=== PATIENT | female | born 1990 | race African-American/Black ===

== ENCOUNTER 2018-09-29 14:50 | Inpatient (IN) | payer OTHER ==
[~2018-09-29] VITALS: Ht 170.2 cm; Wt 65.8 kg
[2018-09-29 14:51] VITALS: BP 114/70
[2018-09-29 15:43] LABS: URINE BILIRUBIN NEGATIVE (Negative); URINE BLOOD NEGATIVE (Negative); URINE CLARITY CLEAR; URINE COLOR YELLOW; URINE GLUCOSE-RANDOM* NEGATIVE (Negative); URINE KETONES NEGATIVE (Negative); URINE PROTEIN (DIPSTICK) NEGATIVE (Negative)
[2018-09-29 15:50] LABS: URINE LEUKOCYTES-REFLEX 1+ (Negative); URINE NITRITE-REFLEX POSITIVE (Negative)
[2018-09-29 15:52] LABS: BACTERIA-REFLEX >30 Many /HPF (None Seen); CASTS None Seen /LPF (None Seen); CRYSTALS None Seen /LPF (None Seen); SQUAMOUS >10 Many /LPF (0-3); URINE RBC None Seen /HPF (0-2); URINE WBC-REFLEX 0-5 Rare /HPF (0-5)
[2018-09-29 17:49] LABS: MCH 15.7 pg (26.0-34.0)
[2018-09-29 17:51] LABS: CREATININE 0.7 mg/dL (0.6-1.0); MCHC 28.4 g/dL (28.0-37.0); MCV 55.3 fL (80.0-100.0); PLATELET COUNT 439 thou/uL (150-400); POTASSIUM 3.7 mmol/L (3.5-5.1); RBC 3.53 mil/uL (4.20-5.00); RDW 20.6 % (10.5-14.5); WBC 4.9 thou/uL (4.0-11.0)
[2018-09-29 17:53] LABS: HEMATOCRIT 19.5 % (37.0-47.0)
[2018-09-29 17:54] LABS: HEMOGLOBIN 5.6 gm/dL (12.0-15.0)
[2018-09-29 17:57] LABS: ALBUMIN 3.9 g/dL (3.4-5.0); TOTAL BILIRUBIN 0.3 mg/dL (<0.1-1.0); TOTAL PROTEIN 7.6 g/dL (6.4-8.2)
[2018-09-29 18:17] LABS: ABSOLUTE NEUTROPHILS 3.8 thou/uL (1.4-8.2)
[2018-09-29 18:18] LABS: ANISOCYTOSIS 1+; HYPOCHROMASIA 2+; MICROCYTES 3+; OVALOCYTES 1+; PLATELET ESTIMATE INCREASED; SCHISTOCYTES 1+
[2018-09-29 22:38] VITALS: BP 137/77
[2018-09-29 22:49] VITALS: BP 126/58
[2018-09-30] VITALS (8 sets, daily range): BP systolic 104–118; BP diastolic 42–64
--- NOTE | 2018-09-30 03:32 | NUR ---
ASSUMED CARE OF PT AT 2245HRS. PT ARRIVED FROM ED ON A WC AND WALKED TO THE BED WITH A STEADY GAIT. PT AOX4 AND UP AD JESUS. PT REPORTS WEAKNESS AND ABD PAIN. PT IS ANEMIC AND BLOOD WAS ORDERED AND TRANSFUSED. NO TRANSFUSION REACTION NOTED AFTER FIRST UNIT OF PRBC. PT WAS TREATED FOR PAIN AND WAS COMFORTABLE ENOUGH TO SLEEP PART OF THE SHIFT. NO S/S OF ACUTE DISTRESS. WILL CONTINUE TO MONITOR.
[2018-09-30 05:02] LABS: MCV 59.4 fL (80.0-100.0)
[2018-09-30 05:04] LABS: HEMATOCRIT 21.8 % (37.0-47.0); MCH 17.5 pg (26.0-34.0); MCHC 29.4 g/dL (28.0-37.0); RBC 3.67 mil/uL (4.20-5.00); RDW 22.3 % (10.5-14.5); WBC 4.6 thou/uL (4.0-11.0)
[2018-09-30 05:07] LABS: HEMOGLOBIN 6.4 gm/dL (12.0-15.0)
[2018-09-30 05:12] LABS: CALCIUM 8.2 mg/dL (8.5-10.1); CREATININE 0.6 mg/dL (0.6-1.0); POTASSIUM 3.5 mmol/L (3.5-5.1)
[2018-09-30 05:19] LABS: % SATURATION 13 % (20-39); IRON 46 ug/dL (50-170); TIBC 365 ug/dL (250-450)
[2018-09-30 05:33] LABS: TSH 3.295 uIU/mL (0.358-3.740)
[2018-09-30 15:16] LABS: HEMATOCRIT 28.8 % (37.0-47.0); HEMOGLOBIN 8.3 gm/dL (12.0-15.0)
--- NOTE | 2018-09-30 15:58 | NUR ---
AAOX4 VERY PLEASANT AND COOPERATIVE. TOOK ONE DOSE MORPHINE THIS SHIFT FOR C/O RIGHT LOWER QUADRANT PAIN. IV RIGHT HAND AND LEFT UPPER ARM SALINE LOCKED. GOOD APPETITE FOR MEALS. UAL IN HALLS WANTING TO BE DISCHARGED. ALERTED DR. SU OF WISHES TO BE DISCHARGED. HH REPEATED AT 1500 AND HBG 8.3.
--- NOTE | 2018-09-30 22:30 | NUR ---
Noted there was an order to transfuse [address] Peña this am. Blood transfusion started per order. Then transfusion stopped shortly after started due to a noted hgb of 8.3. Maynor Winchester [employer] called and notified. Stat hgb was ordered.
[2018-09-30 23:40] LABS: HEMATOCRIT 26.8 % (37.0-47.0); HEMOGLOBIN 8.1 gm/dL (12.0-15.0)
--- NOTE | 2018-10-01 | NUR ---
Pt. wanting to be discharged due to no need to be transfused. Pt. educated on the need for iv antibiotic therapy, but still wanting to leave. Spoke to Maynor PUENTE and informed that pt. was wanting to leave. Pt. to leave AMA.
== END 2018-10-01 00:15 | disposition left against medical advice (07) | DRG 760 ==
LOC: ER 14:50 → EROBS 21:08 → 4W 22:41
PROVIDERS: Internal Medicine; Nurse Practitioner; Nurse Practitioner Family; ADMIT Internal Medicine
DX: D25.9 Leiomyoma of uterus, unspecified (principal); N39.0 Urinary tract infection, site not specified; D50.9 Iron deficiency anemia, unspecified; N83.202 Unspecified ovarian cyst, left side; N83.201 Unspecified ovarian cyst, right side; Z53.21 Procedure and treatment not carried out due to patient leaving prior to being seen by health care provider; Z79.899 Other long term (current) drug therapy
CPT/HCPCS: 10040